=== PATIENT | female | born 2000 | race Caucasian/White ===

== ENCOUNTER → 2023-09-21 | Emergency (ER) | payer SELFPAY ==
[~2023-09-21] VITALS: Ht 162.6 cm; Wt 49.9 kg
[~2023-09-21] MED LIST: IBUP-1955 PO
[2023-09-21 11:06] LABS: PREGNANCY TEST URINE QUAL NEGATIVE (NEGATIVE)
[2023-09-21 12:55] VITALS: BP 125/79; TEMP 98.2; O2SAT 100
== END | disposition home or self-care (01) ==
LOC: ER 10:07
DX: S00.83XA Contusion of other part of head, initial encounter (principal); R11.2 Nausea with vomiting, unspecified; M54.2 Cervicalgia; Z60.2 Problems related to living alone; W22.03XA Walked into furniture, initial encounter; Y93.89 Activity, other specified; Y92.59 Other trade areas as the place of occurrence of the external cause; Y99.8 Other external cause status
CPT/HCPCS: 70450-TC; 72125-TC; 84703-TC